=== PATIENT | female | born 1945 | race Caucasian/White ===

== ENCOUNTER 2020-11-27 09:44 | Outpatient (CLI) | payer MEDICARE | END 2020-11-27 09:45 | disposition home or self-care (01) | LOC: CSHMRI 09:44 | PROVIDERS: ATTEND Family Medicine | DX: R25.1 Tremor, unspecified (principal) | CPT/HCPCS: 70551 ==

== ENCOUNTER 2021-11-22 09:32 | Outpatient (CLI) | payer MEDICARE, OTHER | END 2021-11-22 09:33 | disposition home or self-care (01) | LOC: CSHMAMMO 09:32 | PROVIDERS: ATTEND Family Medicine | DX: Z12.31 Encounter for screening mammogram for malignant neoplasm of breast (principal) | CPT/HCPCS: 77063; 77067 ==

== ENCOUNTER 2022-09-26 10:11 | Emergency (ER) | payer MEDICARE ==
[2022-09-26] MEDS ORDERED: Morphine 4 MG/ML VIAL ONE ×3 (10:45→21:32)
[2022-09-26 11:00] LABS: #Basophils 0.1 10x3/uL (0.0-0.2); #Eosinphils 0.2 10x3/uL (0.0-0.5); #Monocytes 0.4 10x3/uL (0.0-1.1); #Neutrophils 3.8 10x3/uL (1.5-8.4); %Basophils 1.2 % (0.0-2.0); %Lymphocytes 19.2 % (18.0-47.0); %Monocytes 7.3 % (0.0-10.0); %Neutrophils 68.4 % (40.0-75.0); Mean Corpuscular HGB CONC 32.7 g/dL (32.0-36.0); Mean Corpuscular Hemoglobin 29.1 pg (27.0-33.0); Mean Corpuscular Volume 88.8 fl (81.6-98.3); Mean Platelet Volume 9.1 fl (7.4-10.4); Platelet Count 261 10x3/uL (150-450); RBC Distribution Width 12.6 % (11.5-14.5); Red Blood Cell (RBC) Count 4.47 10x6/uL (3.90-5.03); White Blood Cell (WBC) Count 5.6 10x3/uL (3.5-10.5)
[2022-09-26 11:12] LABS: Anion Gap 13 mmol/L (10-20); BUN (Urea Nitrogen) 16 mg/dL (9.8-20.1); Calc. Creatinine Clearance 0 mL/min (70-130); Calcium 9.1 mg/dL (7.8-10.44); Carbon Dioxide 24 mmol/L (23-31); Chloride 105 mmol/L (98-107); Estimated GFR 91; Glucose 105 mg/dL (83-110); Magnesium 1.9 mg/dL (1.6-2.6); Potassium 4.1 mmol/L (3.5-5.1); Sodium 138 mmol/L (136-145)
[2022-09-26] MEDS ORDERED: CEFAZOLIN 2 GM VIAL ONE (12:28)
[2022-09-26] MEDS ORDERED: Boostrix 0.5 ML (Tdap) VIAL (>/=7 yrs of age) ONE (12:29)
[2022-09-26] MEDS ORDERED: HYDROmorphone 0.5 MG/0.5 ML SYRINGE ONE ×2 (14:52→18:40)
== END 2022-09-26 21:56 | disposition short-term general hospital (02) ==
LOC: CSHERS 10:11
DX: M25.532 Pain in left wrist (principal); Z23 Encounter for immunization
CPT/HCPCS: 80048; 83735; 85025; 90471; 90715; 96365; 96366; 96375; 96376; J1170; J2270

== ENCOUNTER 2023-09-28 10:31 | Outpatient (CLI) | payer MEDICARE | END 2023-09-28 10:32 | disposition home or self-care (01) | LOC: CSHMAMMO 10:31 | PROVIDERS: ATTEND Family Medicine | DX: Z12.31 Encounter for screening mammogram for malignant neoplasm of breast (principal); Z13.820 Encounter for screening for osteoporosis; N95.9 Unspecified menopausal and perimenopausal disorder; M85.851 Other specified disorders of bone density and structure, right thigh; M81.0 Age-related osteoporosis without current pathological fracture | CPT/HCPCS: 77063; 77067; 77080 ==